=== PATIENT | male | born 1995 | race Caucasian/White ===

== ENCOUNTER 2020-12-10 22:28 | Emergency (ER) | payer BC ==
[2020-12-10 22:53] LABS: BILIRUBIN,URINE NEGATIVE (NEGATIVE); GLUCOSE, URINE (UA) NEGATIVE (NEGATIVE); KETONES,URINE (UA) NEGATIVE (NEGATIVE); LEUKOCYTE ESTERASE, URINE NEGATIVE (NEGATIVE); NITRITE,URINE NEGATIVE (NEGATIVE); OCCULT BLOOD,URINE NEGATIVE (NEGATIVE); PH,URINE 5.5 PH (5.0-7.5); PROTEIN,URINE NEGATIVE (NEGATIVE); UROBILINOGEN,URINE 1 (NORMAL) E.U./dL (NORMAL)
[2020-12-10 22:55] LABS: CLARITY,URINE CLEAR (CLEAR)
--- NOTE | 2020-12-11 01:13 | ED Physician Documentation ---
PD HPI MALE - Stated complaint Stated Complaint: MALE - Chief complaint Chief Complaint: General - History obtained from History obtained from: Patient - History of Present Illness Timing - onset: How many months ago (1) Timing - details: Intermittant Pain level now: 8 Associated symptoms: Testiclar pain. No: Dysuria, Urinary frequency, Unable to urinate, Hematuria, Discharge, Genital sore / lesion, Abdominal pain PD HPI MALE CONTRIB FACTORS: Sexually active, Exposed to STD Similar symptoms before: Has not had sx before - Additional information Additional information: c/o 1 month of episodic bilateral testicular pain, left more than right. has not seen a doctor for this until now. denies injury. Review of Systems Constitutional: reports: Reviewed and negative GI: reports: Reviewed and negative : reports: Testicular pain. denies: Dysuria, Frequency, Hematuria, Discharge Skin: denies: Lesions PD PAST MEDICAL HISTORY - Past Medical History Past Medical History: No - Past Surgical History Past Surgical History: Yes - Present Medications Home Medications: Ambulatory Orders Medication Instructions Recorded Confirmed oxyCODONE [Roxicodone] 5 - 10 mg PO Q6H PRN #14 tablet 12/11/20 - Allergies Allergies/Adverse Reactions: Allergies Allergy/AdvReac Type Severity Reaction Status Date / Time No Known Drug Allergies Allergy Verified 12/10/20 22:31 - Social History Does the pt smoke?: No Smoking Status: Never smoker Does the pt drink ETOH?: No Does the pt have substance abuse?: No Substance Use and Type: Marijuana - Immunizations Immunizations: TDAP >10years/unknown - POLST Patient has POLST: No PD ED PE NORMAL - Vitals Vital signs reviewed: Yes - General General: Alert and oriented X 3, No acute distress, Well developed/nourished - Cardiac Cardiac: RRR, No murmur - Respiratory Respiratory: No respiratory distress, Clear bilaterally - Abdomen Abdomen: Soft, Non tender PD ED PE EXPANDED - Male Male : Normal Exam, Circumcised, Testes descended dionte, Normal lie/cremastaric. No: Skin lesions, Discharge, Tenderness Results - Vitals Vitals: Oxygen O2 Source Room air - Labs Labs: Laboratory Tests 12/10/20 12/11/20 22:48 01:34 Urine Color YELLOW Urine Clarity CLEAR Urine pH 5.5 Ur Specific [place] >=1.030 H Urine Protein NEGATIVE Urine Glucose (UA) NEGATIVE Urine Ketones NEGATIVE Urine Occult Blood NEGATIVE Urine Nitrite NEGATIVE Urine Bilirubin NEGATIVE Urine Urobilinogen 1 (NORMAL) Ur Leukocyte Esterase NEGATIVE Ur Microscopic Review NOT INDICATED Urine Culture Comments NOT INDICATED Chlam trachomat DNA PCR NEGATIVE N.gonorrhoeae DNA (PCR) NEGATIVE T. vaginalis (PCR) TNP - Rads (name of study) bilateral testicular US Radiology: Prelim report reviewed, See rad report PD MEDICAL DECISION MAKING - ED course Complexity details: reviewed results, re-evaluated patient, considered di fferential, d/w patient Departure - Departure Disposition: 01 Home, Self Care Clinical Impression: Hydrocele, Testicular pain Condition: Good Instructions: ED Hydrocele Type Not Specified, ED Testicular Pain [facility] Prescriptions: oxyCODONE [Roxicodone] 5 - 10 mg PO Q6H PRN #14 tablet PRN Reason: Pain Comments: As we discussed, you should follow up with a urologist. Contact your insurance provider to ask to be assigned a primary care provider. Also ask your insurance provider their procedure for obtaining a referral to see a urologist (they might refer you to one or they might have you see a general practitioner (family practice, for example) to get the referral). Discharge Date/Time: 12/11/20 02:57
[2020-12-11] MEDS ORDERED: oxyCODONE 5 MG TABLET PO STA (01:34)
[2020-12-11] MEDS ORDERED: AZITHROMYCIN 250 MG TABLET PO STA (02:05)
[2020-12-11] MEDS ORDERED: LIDOCAINE 1% 2 ML VIAL MC ONE (02:05)
[2020-12-11] MEDS ORDERED: cefTRIAXone 500 MG VIAL IM STA (02:05)
[2020-12-11] MEDS ORDERED: cefTRIAXone 250 MG VIAL ONE (02:12)
[2020-12-11 02:58] VITALS: BP 122/70
--- NOTE | 2020-12-11 09:05 | Ultrasound Report ---
PROCEDURE: Testicle w/Doppler INDICATIONS: B testicular pain TECHNIQUE: Real-time scanning was performed of the scrotum and testicles, with image documentation. Color and p ulse Doppler interrogation was performed of both testicles. COMPARISON: None. FINDINGS: Right: Testicle is normal in size at 2.4 x 2.1 x 4.1 cm, and homogenous in echotexture. Epididymis is normal in overall size and morphology. Small varicocele. Small hydrocele noted. Overlying scrotal skin is normal in thickness. Left: Testicle is normal in size at 4.5 x 2.7 x 2.4 cm, and homogeneous in echotexture. Epididymis is normal in overall size and morphology. 7 mm epididymal cyst. Small varicocele. 3 mm epididymal cys t. Small hydrocele noted. Overlying scrotal skin is normal in thickness. Doppler: Color and pulse Doppler demonstrate normal and symmetric arterial flow in both testicles. IMPRESSION: 1. No evidence of testicular torsion. Please note ultrasound cannot exclude intermittent torsion. 2. Small bilateral varicoceles, left greater than right. 3. Small bilateral hydroceles. 4. Small bilateral epididymal cysts. Reviewed by: Sherry Capps MD, PhD on 12/11/2020 9:04 AM PDT Approved by: Sherry Capps MD, PhD on 12/11/2020 9:04 AM PDT Station ID: [id number]
[2020-12-11 22:31] LABS: CHLAMYDIA TRACHOMATIS DNA NEGATIVE (NEGATIVE); NEISSERIA GONORRHOEAE DNA NEGATIVE (NEGATIVE)
== END 2020-12-11 02:57 | disposition home or self-care (01) ==
LOC: ED 22:28
DX: N43.3 Hydrocele, unspecified (principal)
CPT/HCPCS: 76870; 81003; 87491; 87591; 93975; 96372; 99283; 99284; A9270; 81001; 87086; 87661